=== PATIENT | female | born 1965 | race Caucasian/White ===

== ENCOUNTER → 2016-04-30 | Outpatient (CLI) | payer OTHER ==
--- NOTE | 2016-04-30 16:18 | MA ---
Screening Digital Mammogram with Digital Breast Tomosynthesis Clinical Indications: Routine screening. Previous genetic testing was negative. Technique: Standard cephalocaudal projections are obtained. Digital breast tomosynthesis was perform ed in the MLO projection with reconstruction at 1.0 mm slice thickness and composite MLO views recons tructed. This examination is processed by the CAD computer aided detection system. Comparison: April 28, 2015; April 26, 2014; and studies dating back to April 04, 2008. Breast density: D; The breasts are extremely dense, which lowers the sensitivity of mammography. Findings: CAD was reviewed. There are no new masses, new clusters of microcalcifications, or significant axillary lymphadenopathy . Impression: Negative mammogram. BI-RADS 1. Recommendation: Routine screening mammogram is recommended in one year. Dense mammographic pattern limits the sensitivity of mammography in this patient. If there is a clini yuni palpable abnormality, recommend additional imaging with ultrasound if clinically indicated. [facility] will send a result letter to the patient. Negative mammography should not preclude additional workup of a clinically suspicious finding. The patient's information is entered into a reminder system with a target due date for her next mammo gram.
== END ==
LOC: FIMAGING 10:33
DX: Z12.31 Encounter for screening mammogram for malignant neoplasm of breast (principal)
CPT/HCPCS: G0202

== ENCOUNTER 2017-02-18 05:50 | Day surgery (SDC) | payer OTHER ==
--- NOTE | 2017-02-15 18:26 | GHP ---
[f rep st] PREOP HISTORY AND PHYSICAL DATE OF ADMISSION: 02/18/2017 SCHEDULED DATE OF SURGERY: February 18, 2017, at 7:15 a.m. SURGERY TO BE PERFORMED: Hysteroscopy dilation curettage and polypectomy with morcellator. PREOPERATIVE DIAGNOSES: 1. Dysfunctional uterine bleeding. 2. Menometrorrhagia. 3. Endometrial mass. HISTORY OF PRESENT ILLNESS: The patient is a 51-year-old, 4, para 3-0-1-2, who has had irreg ular cycles this year, skipping periods, having times where she has 2, or if not 3, months between cy cles, and is having some mild perimenopausal symptoms with sleep disturbances. We had discussed this in December. I talked about hormone replacement therapy. The patient wished to wait. In the begi nning of January she called complaining that she had 2 periods in the month, and now currently bleedi ng for 2 weeks at a time, very heavy, having to change a pad and tampon every hour, feeling lighthead ed and dizzy, and really run down from the bleeding. We checked labs, and she was found to be anemic . Her H and H were 9.9 and 28.6, and she was started on iron. She had a pelvic ultrasound, which re vealed a thickened endometrial stripe of 1.97 cm. The uterus itself was heterogeneous. Endometrial canal also heterogenous and thickened, difficult to see a clear border, measuring between 16 and 23 m m. The endometrial canal itself was very vascular, and there was a bulbous part in the anterior port ion that measured 4.2 x 2.5 x 2.4 cm, possible polyp versus another mass. She underwent an endometri al biopsy. She underwent an endometrial biopsy that revealed no evidence of hyperplasia or malignanc y. So, proliferative phase with stromal breakdown. We discussed treatment options for this endometr ial mass and dysfunctional uterine bleeding, and the patient wishes to have definitive management wit h surgery, hysteroscopy, D and C, and polypectomy. I am in agreement. She has been started on iron for her anemia, and her symptoms are slowly improving. The patient has no significant medical proble ms or chronic medical issues. No gynecological problems. She has been going through normal perimeno pausal irregular cycles. Never had heavy bleeding like this until 2 weeks prior to presentation. No history of any abnormal Pap smears. Her most recent Pap smear was January 05, and it was normal. She has no history of any STDs. PAST OBSTETRICAL HISTORY: In July of 1999, the patient had a vaginal delivery of a nonviable male s tillborn. In December 1999, she had a spontaneous at 7 weeks. In January 2001, she had a viable male, 7 pounds 6 ounces. In October of 2003, she had a viable female 6 pounds 6 ounces. Those kyaw felipe are alive and well. She has a history of an umbilical hernia repair in 2005. She had a laws llar fracture this summer, which did not require surgery to fix, and has no other surgical history. ALLERGIES: She has no known drug allergies. MEDICATIONS: She takes no chronic medications. SOCIAL HISTORY: She is . She lives with her and 2 children. 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 She denies tobacco. Alcohol 2 times a week. Occasional mar ijuana, very rare, and 1 cup a day of coffee. She has regular exercise, biking and swimming. FAMILY HISTORY: Her father had elevated cholesterol and carotid issues, and had to have a carotid en darterectomy. Her mother has a history of phlebitis and bleeding disorders. Paternal grandmother honeycutt d breast cancer. Maternal grandfather had pancreas cancer and skin cancer. She has had BRCA testing , and it was negative. Adult onset diabetes in aunts. Her son has asthma, eczema, and significant f ood allergies. No other significant family history. REVIEW OF SYSTEMS: Currently, the patient has fatigue and some shortness of breath with exercise, li jassi due to her anemia. 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 It has improved in the last few days. Other than that, she has a negative 10-point review of systems. OBJECTIVE: VITAL SIGNS: Today, blood pressure is 100/60, weight is 118. GENERAL: She is a well-de veloped, thin, white woman in no acute distress. LUNGS: Clear to auscultation bilaterally. HEART: Regular rate and rhythm. No murmur. ABDOMEN: Soft, nontender, nondistended. Normal bowel sounds. PELVIC: Normal external genitalia. Normal parous cervix. Uterus is anteverted, anteflexed, mobil e, slightly bulky feeling, normal size. No adnexal masses. ASSESSMENT AND PLAN: A 51-year-old, 4, para 3-0-1-2 with dysfunctional uterine bleeding and endometrial mass, likely polyp, with a negative endometrial biopsy. The patient was consented for hy steroscopy, D and C, and polypectomy today. She understood the risks and benefits. The risks includ ing bleeding, infection, damage to the uterus, including possible risk of perforation, damage to othe r organs or perforation were to occur, electrolyte imbalances, and need for additional procedures. /[id number]/MODL
[2017-02-18] MEDS ORDERED: LIDOCAINE 1% 2 ML INJ ONE ×2 (06:15)
[2017-02-18] MEDS ORDERED: LR 1,000 ML IV ONE ×2 (06:17)
[2017-02-18] MEDS ORDERED: LIDOCAINE 1% 2 ML INJ ID PRN ×2 (06:17)
[2017-02-18 06:36] VITALS: PULSE 52
[2017-02-18 06:49] LABS: PLATELET COUNT 335 10^3/uL (150-400)
[2017-02-18] MEDS ORDERED: SILVER NITRATE APPLICATOR 1 APPL TP ONE ×2 (07:01)
[2017-02-18] MEDS ORDERED: MIDAZOLAM 2 MG/2 ML VIAL IVP ONE ×2 (07:09)
[2017-02-18] MEDS ORDERED: PROMETHAZINE HCL 25 MG/ML INJ IVP PRN ×2 (07:11)
[2017-02-18] MEDS ORDERED: HYDROmorphONE/DILAUDID 1 MG/ML INJ IVP PRN ×2 (07:11)
[2017-02-18] MEDS ORDERED: LR 500 ML IV PRN ×2 (07:11)
[2017-02-18] MEDS ORDERED: NALOXONE HCL 0.4 MG/ML INJ IVP PRN ×2 (07:11)
[2017-02-18] MEDS ORDERED: ALBUTEROL 3 ML DEYVIAL IH PRN ×2 (07:11)
[2017-02-18] MEDS ORDERED: ONDANSETRON 4 MG/2 ML VIAL IVP PRN ×2 (07:11)
[2017-02-18] MEDS ORDERED: DEXAMETHASONE 4 MG/ML VIAL IVP PRN ×2 (07:11)
--- NOTE | 2017-02-18 07:11 | PDANEPAE ---
ANE History of Present Illness here for hysteroscpy D and C ANE Past Medical History - Cardiovascular History Hx Hypertension: No Hx Arrhythmias: No Hx Chest Pain: No Hx Coronary Artery / Peripheral Vascular Disease: No Hx CHF / Valvular Disease: No Hx Palpitations: No - Pulmonary History Hx COPD: No Hx Asthma/Reactive Airway Disease: No Hx Recent Upper Respiratory Infection: No Hx Oxygen in Use at Home: No Hx Sleep Apnea: No Sleep Apnea Screening Result - Last Documented: Negative - Neurologic History Hx Cerebrovascular Accident: No Hx Seizures: No Hx Dementia: No - Endocrine History Hx Diabetes: No - Renal History Hx Renal Disorders: No - Liver History Hx Hepatic Disorders: No - Neurological & Psychiatric Hx Hx Neurological and Psychiatric Disorders: No - Cancer History Hx Cancer: No - Congenital Disorder History Hx Congenital Disorders: No - GI History Hx Gastrointestinal Disorders: No - Other Health History Other Health History: wears glasses/contacts - Chronic Pain History Chronic Pain: No - Surgical History Prior Surgeries: hernia repair ANE Review of Systems Review of systems is: negative Review of Systems: - Exercise capacity Exercise capacity: >=4 METS METS (RN): 5 METS ANE Patient History - Allergies Allergies/Adverse Reactions: No Known Allergies Allergy (Verified 02/10/17 12:08) - Home Medications Home Medications: Herbals/Supplements -Info Only 02/10/17 [Last Taken 02/17/17] Ferrous Sulfate 02/18/17 [Last Taken 02/17/17] - NPO status NPO Since - Liquids (Date): 02/17/17 NPO Since - Liquids (Time): 21:30 NPO Since - Solids (Date): 02/17/17 NPO Since - Solids (Time): 18:00 - Smoking Hx Smoking Status: Never smoked - Family Anes Hx Family Hx Anesthesia Complications: none ANE Labs/Vital Signs - Labs Result Diagrams: 02/18/17 06:10 - Vital Signs Blood Pressure: 112/58 Heart Rate: 52 Respiratory Rate: 16 O2 Sat (%): 99 Height: 156.21 cm Weight: 52.163 kg ANE Physical Exam - Airway Neck exam: FROM Mallampati Score: Class 1 Mouth exam: normal dental/mouth exam - Pulmonary Pulmonary: no respiratory distress - Cardiovascular Cardiovascular: regular rate and rhythym - ASA Status ASA Status: II ANE Anesthesia Plan Anesthesia Plan: GA with mask
[2017-02-18] MEDS ORDERED: PROPOFOL/EMULSION 500 MG/50 ML BOTTLE IV ONE ×2 (07:19)
[2017-02-18] MEDS ORDERED: fentaNYL 100 MCG/2 ML INJ ONE ×2 (07:23)
--- NOTE | 2017-02-18 07:41 | PDHPUP ---
History & Physical Update H&P update statement: This history and physical update is based on an assessment of the patient which was completed after admission or registration (within 24 hours), but prior to the surgery/procedure.
[2017-02-18] MEDS ORDERED: HYDROCODONE/APAP 5/325 TAB PO PRN ×2 (08:26)
[2017-02-18] MEDS ORDERED: IBUPROFEN 600 MG TAB PO PRN ×2 (08:26)
--- NOTE | 2017-02-18 08:30 | POSTOPPROG ---
Post Op Note Date of Operation: 02/18/17 Surgeon: Bryanna Floyd Anesthesiologist: Dr. Armand Bales Anesthesia: GET(General Endotracheal) Pre-op Diagnosis: dysfunctional uterine bleeding, endometrial polyp Post-op Diagnosis: same Procedure: Hysteroscopy D and C, polypectomy Inf/Abcess present in the surg proc area at time of surgery?: No Depth: Organ Space EBL: Minimal Total fluids administered: 800 Specimen(s): endometrial curretings
[2017-02-18 08:46] VITALS: TEMP 97.7
[2017-02-18 08:54] VITALS: RESP 6; O2SAT 100
[2017-02-18 09:29] VITALS: BP 101/31
--- NOTE | 2017-02-18 09:42 | GOP ---
[f rep st] OPERATIVE REPORT DATE OF OPERATION: SURGEON: Bryanna Floyd MD ANESTHESIA: General anesthesia. ANESTHESIOLOGIST: Dr. Armand Bales. PREOPERATIVE DIAGNOSIS: Dysfunctional uterine bleeding, menometrorrhagia, and endometrial polyp. POSTOPERATIVE DIAGNOSIS: Dysfunctional uterine bleeding, menometrorrhagia, and endometrial polyp. PROCEDURE PERFORMED: Hysteroscopy, dilation and curettage, polypectomy with morcellator. FINDINGS: SPECIMENS: Endometrial curettings. ESTIMATED BLOOD LOSS: Less than 10 cc. INDICATIONS: The patient is a 51-year-old 4, para 3-0-1-2 who had irregular cycles this year ; skipping periods, having times where she had 2 or 3 months between cycles, and having some symptoms assumed to be perimenopausal. At the beginning of January, she began complaining of having 2 period s in the month, currently bleeding for over 35 days at a time, very heavy, having to change a pad and a tampon every hour, feeling lightheaded, dizzy, and run down from the bleeding. Labs were checked, and her H and H was significantly anemic at 9.9 and 28.6. She was started on iron. She had a pelvi c ultrasound, which revealed a thickened endometrial stripe of 1.97 cm. Uterus itself was heterogene ous, and the endometrial cavity was very vascular, with a bulbous part in the anterior portion that m easured 4.2 x 2.5 x 2.4 cm, possible polyp versus another mass. She underwent an endometrial biopsy, which revealed no hyperplasia or malignancy, proliferative phase endometrium with stromal breakdown. We discussed treatment options, and patient opted to have a hysteroscopy, D and C, polypectomy for definitive diagnosis and treatment of the endometrial mass and treatment of the bleeding. She unders tood the risks and benefits of the procedure, the risks including bleeding; infection; damage to uter us, including possible risk of perforation; damage to other organs if perforation were to occur; elec trolyte imbalances; and need for additional procedures. She understood these risks and benefits agre ed to proceed. DESCRIPTION OF PROCEDURE: Patient was taken to the operating room, where she was placed under genera l anesthesia without difficulty. She was prepped and draped in the dorsal lithotomy position. After a WHO time-out was performed, an open-sided speculum was placed in the vagina, and a Warren jessiulu m was used to grasp the anterior lip of the cervix. The cervix was progressively dilated with Florentino dilators to a #6.5. A hysteroscope was gently advanced from the cervix, and we had difficulty enteri ng the internal cervical os. A small curette was then used, and the cervical os was entered, and the n the hysteroscope was easily passed from the cervix to the fundus. Visualization of the endometrial cavity revealed multiple areas of thickened tissue, specifically at the area of the right tubal osti a. No definitive masses were seen. The morcellator was placed through the operative channel after w indow lock was performed. Morcellation was performed along the entire endometrial cavity until a smo oth open cavity was visualized. The hysteroscope was then removed. Curettage was then performed in a clockwise fashion until a gritty texture was palpated throughout the entire endometrium, and the en dometrial was clean. Single-tooth tenaculum was removed. There were small areas of bleeding that we re cauterized with silver nitrate, and hemostasis was assured. The patient tolerated the procedure w ell. Sponge, lap, needle, and instrument counts were correct x2. The patient went to the recovery r oom in good condition. INTRAVENOUS FLUID REPLACEMENT: 800 cc. URINE OUTPUT: Not measured /[id number]/MODL
--- NOTE | 2017-02-18 10:41 | POSTANESTH ---
Post Anesthetic Evaluation Cardiovascular Status: Normal, Stable Respiratory Status: Normal, Stable Level of Consciousness/Mental Status: Can Participate in Eval Pain Control: Adequate, Prn Tx Ordered Nausea/Vomiting Control: Adequate, Prn Tx Ordered Complications Possibly Related to Anesthesia: None Noted
== END 2017-02-18 10:15 | disposition home or self-care (01) ==
LOC: FSGY 05:50
PROVIDERS: ATTEND Obstetrics & Gynecology
PROC: 0UDB8ZX Extraction of Endometrium, Via Natural or Artificial Opening Endoscopic, Diagnostic (ICD-10-PCS; principal; 2017-02-18 07:15)
DX: N93.8 Other specified abnormal uterine and vaginal bleeding (principal); N92.1 Excessive and frequent menstruation with irregular cycle; N84.0 Polyp of corpus uteri; D64.9 Anemia, unspecified
CPT/HCPCS: 58558; C1782; J2250; J2704; J3010

== ENCOUNTER → 2017-05-09 | Outpatient (CLI) | payer OTHER | LOC: FIMAGING 14:26 | PROVIDERS: ATTEND Obstetrics & Gynecology | DX: Z12.31 Encounter for screening mammogram for malignant neoplasm of breast (principal) ==

== ENCOUNTER → 2018-05-10 | Outpatient (CLI) | payer OTHER | LOC: FIMAGING 11:11 | PROVIDERS: ATTEND Obstetrics & Gynecology | DX: Z12.31 Encounter for screening mammogram for malignant neoplasm of breast (principal) ==

== ENCOUNTER → 2018-08-29 | Outpatient (CLI) | payer OTHER | LOC: FLAB 11:12 | PROVIDERS: ATTEND Family Medicine | DX: M79.631 Pain in right forearm (principal) ==